=== PATIENT | female | born 1965 | race Caucasian/White ===

== ENCOUNTER 2017-03-31 09:49 | Day surgery (SDC) | payer MEDICARE, MEDICAID ==
[2017-03-31] MEDS ORDERED: Lactated Ringers 1,000 ML IV SCH (10:15)
[2017-03-31] MEDS ORDERED: Propofol 200 MG/20 ML SDV ONE (11:11)
[2017-03-31] MEDS ORDERED: Midazolam 1 MG/ML 2 ML SDV ONE (11:11)
[2017-03-31 12:54] VITALS: BP 140/92
--- NOTE | 2017-04-01 08:26 | OR ---
DATE OF PROCEDURE: 03/31/2017 PREOPERATIVE DIAGNOSIS: Dysphagia. POSTOPERATIVE DIAGNOSES: Severe gastroesophageal reflux disease. Small hiatal hernia. PROCEDURE: Esophagogastroduodenoscopy with biopsy of gastroesophageal junction. SURGEON: Ramon Rico MD. ANESTHESIA: IV anesthesia with monitored anesthesia care. INDICATION: This 51-year-old white female is referred for upper endoscopy because of occasional dysphagia. She takes Tums for some discomfort. I counseled her mother who is her guardian for upper endoscopy with possible biopsy including risks and alternatives, and she gave her informed consent to proceed. DESCRIPTION OF PROCEDURE: The patient was placed in the left lateral decubitus position. IV anesthesia was administered by the Anesthesia Service. Time-out was held. The flexible video Olympus upper endoscope was passed through her mouth, down her esophagus, and into her stomach. The scope was easily passed through the pylorus into the duodenum reaching its third portion. The scope was then slowly withdrawn examining the mucosa throughout. The duodenal mucosa appeared unremarkable. The scope was brought back through the pylorus into the antrum, this appeared unremarkable. The scope was retroflexed. The proximal stomach appeared unremarkable. The scope was straightened and brought up to the GE junction. There was about a 2 cm hiatal hernia. The GE junction was markedly abnormal with fingers of gastric mucosa and scarring going proximally up into the esophagus. This was a highly suggestive of Polk's esophagus. We obtained multiple, totaling at least six biopsies of the gastroesophageal junction. The scope was then brought proximal up through the remainder of the esophagus, which otherwise appeared unremarkable and it was removed. She tolerated the procedure well. I will start her on omeprazole 40 mg a day, dispense 30. Ramon Rico MD /[id number] MTDD
== END 2017-03-31 13:07 | disposition home or self-care (01) ==
LOC: JP.SDS 09:49
PROVIDERS: ATTEND Surgery
DX: K22.10 Ulcer of esophagus without bleeding (principal); K21.0 Gastro-esophageal reflux disease with esophagitis; K44.9 Diaphragmatic hernia without obstruction or gangrene
CPT/HCPCS: 43239; 88305; 88312; 88342; J2250; J2704; J7120

== ENCOUNTER 2019-12-10 13:52 | Emergency (ER) | payer MEDICARE, MEDICAID ==
[2019-12-10 14:06] VITALS: BP 160/113; PULSE 79
[2019-12-10] MEDS ORDERED: Cephalexin 250 MG Cap PO ONE (14:24)
--- NOTE | 2019-12-10 14:24 | EDM.PDOC ---
ED HPI GENERAL MEDICAL PROBLEM - General Chief Complaint: General Stated Complaint: SWELLEN RT SIDE FACE AND CHIN Time Seen by Provider: 12/10/19 14:10 Source of Information: Reports: Patient, Family, Old Records, RN History Limitations: Reports: No Limitations - History of Present Illness INITIAL COMMENTS - FREE TEXT/NARRATIVE: 54 yo female here with redness and swelling of her upper/anterior neck. Sx's were first noted when she awoke today. No fever or chills. No dental pain. Seems slightly better now than earlier. No hx of the same. No issues with breathing or swallowing. Did not come on after eating. Is not itchy. Onset: Today Onset Date: 12/10/19 Duration: Hour(s):, Constant Location: Reports: Neck (anterior) Quality: Reports: Dull Severity: Mild Improves with: Reports: Other (? slight improvement with time.) Worsens with: Reports: Other (unknown) Context: Reports: Other (See HPI) Associated Symptoms: Reports: No Other Symptoms Treatments BUILD[employer] AND [employer]DS DIRECTOR: Reports: Other (see below) (none) Neck Pain Score (Numeric/FACES): 3 - Related Data Allergies Allergy/AdvReac Type Severity Reaction Status Date / Time No Known Allergies Allergy Verified 12/10/19 14:05 Home Meds: Home Meds Calcium Carbonate/Vitamin D3 [Calcium 600 + Vit D 200] 1 tab PO BID 03/29/17 [ History] Flaxseed Oil [Flax Oil] 1,000 mg PO DAILY 03/29/17 [History] Multivitamin with Minerals [Multiple Vitamin] 1 tab PO DAILY 03/29/17 [History] [place]-3/DHA/Epa/Fish Oil [[place]-3 Fish Oil 1,000 MG Sfgl] 1,000 mg PO DAILY [History] Simvastatin [Zocor] 60 mg PO BEDTIME 03/29/17 [History] Cephalexin [Keflex] 500 mg PO Q6H #30 capsule 12/10/19 [Rx] Omeprazole 40 mg PO DAILY 12/10/19 [History] Triamterene/Hydrochlorothiazid [Triamterene-HCTZ 37.5-25 MG] 1 tab PO DAILY 05/23 [History] metFORMIN HCl [Metformin HCl] 500 mg PO BID 12/10/19 [History] Past Medical History HEENT History: Reports: Impaired Vision Cardiovascular History: Reports: MT Neurological History: Reports: Other (See Below) Other Neuro History: learning disabled Psychiatric History: Reports: Panic Attack Endocrine/Metabolic History: Reports: Diabetes, Type II, Obesity/BMI 30+ - Infectious Disease History Infectious Disease History: Reports: Chicken Pox - Past Surgical History Head Surgeries/Procedures: Reports: None HEENT Surgical History: Reports: None Cardiovascular Surgical History: Reports: None Endocrine Surgical History: Reports: None Neurological Surgical History: Reports: None Dermatological Surgical History: Reports: None Social & Family History - Tobacco Use Smoking Status *Q: Never Smoker Second Hand Smoke Exposure: No - Caffeine Use Caffeine Use: Reports: None - Recreational Drug Use Recreational Drug Use: No ED ROS GENERAL - Review of Systems Review Of Systems: See Below Constitutional: Reports: No Symptoms HEENT: Reports: No Symptoms Respiratory: Reports: No Symptoms Cardiovascular: Reports: No Symptoms GI/Abdominal: Reports: No Symptoms : Reports: No Symptoms Musculoskeletal: Reports: No Symptoms Skin: Reports: Erythema (anterior neck ) Neurological: Reports: No Symptoms ED EXAM, GENERAL - Physical Exam Exam: See Below Exam Limited By: No Limitations General Appearance: Alert, WD/WN, No Apparent Distress Eye Exam: Bilateral Eye: Normal Inspection Ears: Normal External Exam, Normal Canal, Hearing Grossly Normal, Normal TMs Ear Exam: Bilateral Ear: Auricle Normal, Canal Normal, TM normal Nose: Normal Inspection, No Blood Throat/Mouth: Normal Inspection, Normal Lips, Normal Oropharynx, Normal Voice, No Airway Compromise Head: Atraumatic, Normocephalic Neck: Normal Inspection Respiratory/Chest: No Respiratory Distress, Lungs Clear, Normal Breath Sounds, No Accessory Muscle Use Extremities: Normal Inspection Neurological: Alert, Oriented, CN II-XII Intact, Normal Cognition, No Motor/ Sensory Deficits Psychiatric: Normal Affect, Normal Mood Skin Exam: Warm, Dry, Intact, No Rash, Erythema (to anterior/upper neck. Not painful. ), Increased Warmth (red area of neck is just slightly warmer than the surrounding tissues. ). No: Lymphangitis, Wound/Incision Course - Vital Signs Last Recorded V/S: Last Vital Signs Temp 37.1 C 12/10/19 14:08 Pulse 79 12/10/19 14:08 Resp 22 H 12/10/19 14:08 BP 160/113 H 12/10/19 14:08 Pulse Ox 95 12/10/19 14:08 - Orders/Labs/Meds Labs: Laboratory Tests 12/10/19 Range/Units 14:30 WBC 4.3 L (4.5-11.0) K/uL RBC 4.83 (3.30-5.50) M/uL Hgb 13.8 (12.0-15.0) g/dL Hct 42.2 (36.0-48.0) % MCV 87 (80-98) fL MCH 29 (27-31) pg MCHC 33 (32-36) % Plt Count 242 (150-400) K/uL Meds: Medications Discontinued Medications Generic Name Dose Route Start Last Admin Trade Name Freq PRN Reason Stop Dose Admin Cephalexin 750 mg 12/10/19 14:24 12/10/19 14:28 Keflex PO 12/10/19 14:25 750 mg ONETIME ONE Administration Departure - Departure Time of Disposition: 14:40 Disposition: Home, Self-Care 01 Condition: Fair Clinical Impression: Cellulitis of neck - Discharge Information *PRESCRIPTION DRUG MONITORING PROGRAM REVIEWED*: No *COPY OF PRESCRIPTION DRUG MONITORING REPORT IN PATIENT SHELBY: No Prescriptions: Cephalexin [Keflex] 500 mg PO Q6H #30 capsule Instructions: Cellulitis, Adult, [id number] Referrals: Jorge Morocho MD [Primary Care Provider] - Forms: ED Department Discharge Additional Instructions: Take cephalexin as directed. May apply warm, moist compresses to the area. Recheck in the clinic tomorrow unless much improved. Sepsis Event Note - Evaluation Sepsis Screening Result: No Definite Risk - Focused Exam Vital Signs: Vital Signs Temp Pulse Resp BP Pulse Ox 12/10/19 14:08 37.1 C 79 22 H 160/113 H 95 12/10/19 14:05 37.1 C 79 22 H 160/113 H 95 Date Exam was Performed: 12/10/19 Time Exam was Performed: 18:05
== END 2019-12-10 14:33 | disposition home or self-care (01) ==
LOC: JP.ED 13:52
DX: L03.221 Cellulitis of neck (principal); E11.9 Type 2 diabetes mellitus without complications; I25.2 Old myocardial infarction; Z79.899 Other long term (current) drug therapy; Z79.84 Long term (current) use of oral hypoglycemic drugs
CPT/HCPCS: 36415; 85027; 99283; A9270